=== PATIENT | male | born 1970 | race African-American/Black ===

== ENCOUNTER 2020-10-04 05:18 | Emergency (ER) | payer MEDICAID ==
[~2020-10-04] VITALS: Ht 185.4 cm; Wt 96.0 kg
[2020-10-04] MEDS ORDERED: ONDANSETRON HCL 4MG/2ML INJ IV STA (06:17)
[2020-10-04] MEDS ORDERED: MORPHINE SULFATE 4 MG/ML CPJ (NOT FOR IM USE) IV STA (06:17)
[2020-10-04 07:30] VITALS: BP 210/127
[2020-10-04] MEDS ORDERED: ENALAPRIL 2.5MG/2ML VIAL 2ML IV ONE (07:45)
[2020-10-04] MEDS ORDERED: ENALAPRIL 2.5MG/2ML VIAL 2ML IV SCH (08:15)
[2020-10-04] MEDS ORDERED: ENAL5TAB21 MT (09:22)
[2020-10-04] MEDS ORDERED: TRAM50TA3 MT (09:22)
== END 2020-10-05 10:00 | disposition home or self-care (01) ==
LOC: ER 05:18
DX: S50.11XA Contusion of right forearm, initial encounter (principal); I16.0 Hypertensive urgency; Y00.XXXA Assault by blunt object, initial encounter; Y93.89 Activity, other specified; Y92.89 Other specified places as the place of occurrence of the external cause
CPT/HCPCS: 29125; 73090; 73130; 96374; 96375; 99284; J2270; J2405; J3490; Z7610